=== PATIENT | female | born 1975 ===

== ENCOUNTER 2018-12-12 17:53 | Emergency (ER) | payer SELFPAY ==
[2018-12-12] MEDS ORDERED: Sodium Chloride 0.9% 1,000 ML IV STA (18:11)
--- NOTE | 2018-12-12 18:13 | ED PDOC ---
HPI: General Adult Time Seen by Provider: 12/12/18 18:12 Chief Complaint (Nursing): Dizziness/Lightheaded Chief Complaint (Provider): dizziness History Per: Patient (43 y/o female h/o migraine headache here with headache since yesterday now associated with room spinning. Denies any vomiting/fevers/diarrhea. Ran out of migraine medications.) Past Medical History Reviewed: Historical Data, Nursing Documentation, Vital Signs Vital Signs: Last Vital Signs Temp 98.8 F 12/12/18 17:54 Pulse 70 12/12/18 17:54 Resp 18 12/12/18 17:54 BP 115/48 L 12/12/18 17:54 Pulse Ox 97 12/12/18 17:54 - Family History Family History: States: No Known Family Hx - Home Medications Home Medications: Ambulatory Orders Medication Instructions Recorded RX: Meclizine HCl 25 mg PO BID #20 tablet 12/13/18 - Allergies Allergies/Adverse Reactions: Allergies Allergy/AdvReac Type Severity Reaction Status Date / Time No Known Allergies Allergy Verified 12/12/18 17:54 Review of Systems ROS Statement: Except As Marked, All Systems Reviewed And Found Negative Physical Exam - Reviewed Nursing Documentation Reviewed: Yes Vital Signs Reviewed: Yes - Physical Exam Appears: Positive for: Well, Non-toxic, No Acute Distress Head Exam: Positive for: ATRAUMATIC, NORMAL INSPECTION, NORMOCEPHALIC Skin: Positive for: Normal Color, Warm, DRY Eye Exam: Positive for: EOMI, Normal appearance, PERRL ENT: Positive for: Normal ENT Inspection Neck: Positive for: Normal, Painless ROM Cardiovascular/Chest: Positive for: Regular Rate, Rhythm Respiratory: Positive for: CNT, Normal Breath Sounds Gastrointestinal/Abdominal: Positive for: Normal Exam, Soft Back: Positive for: Normal Inspection Extremity: Positive for: Normal ROM Neurologic/Psych: Positive for: Alert, Oriented - Laboratory Results Result Diagrams: 12/12/18 19:22 12/12/18 19:22 Urine POC: Negative - ECG ECG Rhythm: Positive for: Sinus Bradycardia (57 bpm; no ectopy no acute changes) O2 Sat by Pulse Oximetry: 97 - Progress ED Course And Treament: ns 1 liter wide open reglan 10 mg iv x 1 dose antivert 25 mg x 1 dose Medical Decision Making Medical Decision Making: as patient has persistent headache, will order CT of head to evaluate. Disposition - Clinical Impression Clinical Impression: Vertigo, Headache - Patient ED Disposition Is Patient to be Admitted: Transfer of Care - Disposition Referrals: [facility] [Outside] Disposition: Transfer of Care Disposition Time: 20:00 Condition: STABLE Prescriptions: RX: Meclizine HCl 25 mg PO BID #20 tablet Instructions: Vertigo (a Type of Dizziness), Headache, Adult, Headache, Adult (DC) Forms: [employer] (Citizen [place]), [employer] (Swedish) Print Language: MICRONESIAN Patient Signed Over To: Reji Blandon Handoff Comments: re-evaluation after head ct/ bloodwork results
[2018-12-12 19:27] LABS: BASO % 0.6 % (0.0-2.0); EOS # 0.1 K/uL (0.0-0.7); EOS % 1.5 % (0.0-4.0); HEMOGLOBIN 12.8 g/dL (12.0-16.0); LYMPH # 2.2 K/uL (1.0-4.3); LYMPH % 35.4 % (20.0-40.0); MEAN CELL VOLUME 86.5 fl (81.0-99.0); MEAN CORPUSCULAR HEMOGLOBIN 28.4 pg (27.0-31.0); MEAN CORPUSCULAR HGB CONC 32.9 g/dL (33.0-37.0); MEAN PLATELET VOLUME 7.4 fl (7.2-11.7); MONO # 0.5 K/uL (0.0-0.8); MONO % 7.5 % (0.0-10.0); NEUT # 3.4 K/uL (1.8-7.0); RBC 4.5 Mil/uL (3.80-5.20); RED CELL DISTRIBUTION WIDTH 14.4 % (11.5-14.5); WHITE BLOOD COUNT 6.1 K/uL (4.8-10.8)
[2018-12-12 19:52] LABS: ALB/GLOB RATIO 1.2 (1.0-2.1); ALBUMIN 4.1 g/dL (3.5-5.0); ALT/SGPT 43 U/L (9-52); AST/SGOT 25 U/L (14-36); BLOOD UREA NITROGEN 13 mg/dl (7-17); CALCIUM 9.5 mg/dL (8.4-10.2); GFR NON-AFRICAN AMERICAN > 60
--- NOTE | 2018-12-12 21:56 | ED PDOC ---
- Laboratory Results Result Diagrams: 12/12/18 19:22 12/12/18 19:22 Lab Results: Total Bilirubin 0.3 mg/dl (0.2-1.3) 12/12/18 19:22 AST 25 U/L (14-36) 12/12/18 19:22 ALT 43 U/L (9-52) 12/12/18 19:22 Alkaline Phosphatase 67 U/L (38-126) 12/12/18 19:22 Total Protein 7.5 G/DL (6.3-8.2) 12/12/18 19:22 Albumin 4.1 g/dL (3.5-5.0) 12/12/18 19:22 Globulin 3.5 gm/dL (2.2-3.9) 12/12/18 19:22 Albumin/Globulin Ratio 1.2 (1.0-2.1) 12/12/18 19:22 Urine POC: Negative - ECG O2 Sat by Pulse Oximetry: 97 Medical Decision Making Medical Decision Making: Time: 2041 CT RESULTS FINDINGS: BRAIN No acute intraparenchymal hemorrhage. No mass lesion. No CT evidence for acute territorial infarct. No midline shift or extra-axial collections. VENTRICLES: No hydrocephalus. ORBITS: The orbits are unremarkable. SINUSES AND MASTOIDS: The paranasal sinuses and mastoid air cells are clear. BONES: No fracture. SOFT TISSUES: Unremarkable. IMPRESSION: No acute intracranial abnormality. Electronically signed on Dec 12, 2018 8:42:15 PM EST by: Erick Mosquera M.D., MBA Certified By ABR & CBC[facility] Fellowship Trained MRI and CT Specialist Disposition Doctor Will See Patient In The: Office - Clinical Impression Clinical Impression: Vertigo, Headache - POA Present On Arrival: None - Disposition Referrals: [facility] [Outside] Disposition: Routine/Home Disposition Time: 23:00 Condition: STABLE Prescriptions: RX: Meclizine HCl 25 mg PO BID #20 tablet Instructions: Vertigo (a Type of Dizziness), Headache, Adult, Headache, Adult (DC) Forms: [email or web address] (Swedish), [employer] (Vincentian) Print Language: IRANIAN
[2018-12-13 01:28] VITALS: BP 125/71; PULSE 74; RESP 17; TEMP 97.9
[2018-12-13 03:03] VITALS: O2SAT 97
--- NOTE | 2018-12-13 08:47 | CT ---
Date of service: 12/12/2018 PROCEDURE: CT HEAD WITHOUT CONTRAST. HISTORY: headache COMPARISON: None available. TECHNIQUE: Axial computed tomography images were obtained through the head/brain without intravenous contrast. Radiation dose: Total exam DLP = 790.6 mGy-cm. This CT exam was performed using one or more of the following dose reduction techniques: Automated exposure control, adjustment of the mA and/or kV according to patient size, and/or use of iterative reconstruction technique. FINDINGS: HEMORRHAGE: No intracranial hemorrhage. BRAIN: No mass effect or edema. No atrophy or chronic microvascular ischemic changes. VENTRICLES: Unremarkable. No hydrocephalus. CALVARIUM: Unremarkable. PARANASAL SINUSES: Unremarkable as visualized. No significant inflammatory changes. MASTOID AIR CELLS: Unremarkable as visualized. No inflammatory changes. OTHER FINDINGS: None. IMPRESSION: Normal CT of the Head. No intracranial mass, hemorrhage or evidence of acute infarct. The preliminary findings for this examination were reported by [facility] at 8:42 p.m. on 12/12/2018. There is concurrence of this report with the preliminary findings.
--- NOTE | 2018-12-13 18:50 | CARD ---
APPROVED REPORT Date of service: 12/12/2018 EKG Measurement Heart [id number] <Conclusion> Sinus bradycardia Otherwise normal ECG
== END 2018-12-13 01:16 | disposition home or self-care (01) ==
LOC: H.ER 17:53
DX: R51 Headache (principal); R42 Dizziness and giddiness
CPT/HCPCS: 70450; 80053; 81025; 82948; 85025; 93005; 96374; 96375; 99285; J1885; J2765; J7030